=== PATIENT | male | born 1985 | race Caucasian/White ===

== ENCOUNTER 2024-10-21 19:59 | Emergency (ER) | payer OTHER ==
[~2024-10-21] VITALS: Ht 188 cm; Wt 81.7 kg
== END 2024-10-21 21:35 | disposition home or self-care (01) ==
LOC: ER 19:59
DX: S93.602A Unspecified sprain of left foot, initial encounter (principal); S90.122A Contusion of left lesser toe(s) without damage to nail, initial encounter; V89.2XXA Person injured in unspecified motor-vehicle accident, traffic, initial encounter
CPT/HCPCS: 73562-LT; 73610; 73630; 99283-25